=== PATIENT | male | born 1965 | race Caucasian/White ===

== ENCOUNTER 2022-09-01 08:00 | Outpatient (CLI) | payer OTHER, SELFPAY ==
--- NOTE | 2022-09-01 08:00 | RT.EKG_ITS ---
APPROVED REPORT Exam: Resting ECG Reason for Exam: New patient, Atrial fibrillation Patient Location: O HR:58 bpm ECG Measurements Heart Rate 58 AXIS IN 167 P 73 QRSd 97 QRS -34 QT 438 T 29 QTc 431 Conclusion Sinus rhythm...normal P axis, V-rate 50- 99 Left axis Late transition
== END 2022-09-01 08:01 | disposition home or self-care (01) ==
LOC: DI.CARD 08:01
PROVIDERS: PCP Nurse Practitioner Family; Visit Provider Internal Medicine Cardiovascular Disease
DX: I48.91 Unspecified atrial fibrillation (principal)
CPT/HCPCS: 93010

== ENCOUNTER 2023-02-22 00:40 | Outpatient (CLI) | payer OTHER, SELFPAY ==
--- NOTE | 2023-02-22 15:00 | DI.US_ITS ---
APPROVED REPORT EXAM: Comprehensive 2D, Doppler, and color-flow Echocardiogram Patient Location: Out-Patient Route Sales Person: Adina Acevedo RDCS (AE) Indications: s/p Ascending aortic aneurysm repair, Atrial Fibrillation Other Information Study Quality: Adequate Conclusion Normal left ventricular wall thickness and chamber size. Ejection fraction is 60%. Wall motion is n ormal Normal right ventricular size and systolic function Both atria are normal in size The aortic valve is mildly sclerotic and trileaflet with mild regurgitation Normal tricuspid valve with mild regurgitation Normal mitral valve with trace regurgitation Ascending aorta measures 2.93 cm Estimated right ventricular systolic pressure is 24 mmHg Wall motion Left Ventricle The left ventricle is normal size. The left ventricular systolic function is normal. The left ventric ular ejection fraction is within the normal range. There is normal left ventricular wall thickness. T here is normal LV segmental wall motion. There is no ventricular septal defect visualized. LVEF is 60 %. Right Ventricle The right ventricle is normal size. The right ventricular systolic function is normal. Atria The left atrium size is normal. The right atrium size is normal. The interatrial septum is intact wit h no evidence for an atrial septal defect. The atrial septum is aneurysmal. Aortic Valve The Aortic valve is mildly sclerotic. Aortic valve is trileaflet. There is no aortic valvular stenosi s. Mild aortic regurgitation. Mitral Valve The mitral valve is normal in structure. No evidence of mitral valve stenosis. Trace mitral regurgita tion. Tricuspid Valve The tricuspid valve is normal in structure. There is no tricuspid valve stenosis. Mild tricuspid regu rgitation. Pulmonic Valve The pulmonary valve is normal in structure. There is no pulmonic valvular stenosis. There is no pulmo tomas valvular regurgitation. Great Vessels The aortic root is normal in size. The ascending aorta is normal in size. History of repaired ascendi ng aorta. Aortic arch is normal in caliber. IVC is normal in size and collapses >50% with inspiration . Pericardium There is no pericardial effusion. 2D Dimensions IVSD d PLAX 1.08 cm M: 0.6-1.2 LV Vol A2C d MOD 156.7 mL LVPW d PLAX 1.07 cm M: 0.6 - 1.2 LV Vol A4C d MOD 123.7 mL LVID d PLAX 5.55 cm M: 4.2 - 5.8 LA vol/ BSA A2C s A-L 30.5 mL/m2 LVDs 3.80 cm M: 2.5 - 4.0 LA vol/ BSA A4C s A-L 22.9 mL/m2 Ao Root d 3.20 cm M: 3.1 - 3.7 LA Vol/ BSA Biplane s A-L 27.4 mL/m2 RA Area A4C 18.21 cm2 LA Area A4C s MOD 18.45 cm2 RA Vol/ BSA A4C s A-L 24.5 mL/m2 LA Area A2C s MOD 20.52 cm2 Ao Asc Diam d 2.93 cm M: 2.6 - 3.4 LV EF A4C MOD 60.8 % LV EF Teichholz 57.9 % LV EF A2C MOD 60.4 % LVEF (Mak's) 60.37 % M: 52 - 72 LV EF Biplane MOD 60.4 % LV Volume 105.34 mL M: 62 - 150 SV 86.27 mL LV Volume Index 49.92 mL/m2 M: 34 - 74 SV Index 40.91 mL/m2 LV Vol Biplane MOD 142.9 mL FS 30.85 % LV Diastology MV E' medial 0.076 (>0.07 m/s) E/A Ratio 1.3 LV E/e MED 7.55 (<14) MV E Vmax 0.58 (0.4-1.3 m/s) MV E' lateral 0.111 (>0.1 m/s) MV A Vmax 0.45 (0.4-1.3 m/s) LV E/e LAT 5.15 (<14) MV E/A Ratio 1.17 MV E/E' medial 7.59 MV E/E' lateral 5.19 Aortic Valve LVOT Area 3.69 cm2 AoV Area Vmax 2.46 cm2 LVOT Vmax 1.19 m/s AoV Area/ BSA (Vmax) 1.17 cm2/m2 LVOT Mean Ministerio. 0.81 m/s MARLENA Mean Ministerio. 2.46 cm2 LVOT Peak Grad 5.6 mmHg MARLENA Mean Ministerio. Index 1.17 cm2/m2 LVOT Mean Grad 3.0 mmHg LVOT VTI 0.239 m LVOT Diam s 2.15 cm AoV Vmax 1.78 m/s Velocity Ratio 0.67 AoV Mean Ministerio. 1.21 m/s AoV Peak Grad 12.7 mmHg LVOT SV 88.35 mL AoV Mean Grad 6.5 mmHg AoV VTI 0.342 m AoV Area VTI 2.58 cm2 AoV Area/ BSA (VTI) 1.22 cm/m2 Mitral Valve MV DT 227 (160-240 msec) MV PHT 66 msec MV Area PHT 3.35 cm2 Pulmonary Valve PV Vmax 0.97 (0.5-1.5 m/s) RVOT Peak Gr. 1.21 mmHg PV Peak Grad 3.8 mmHg RVOT Mean Gr. 0.55 mmHg PV Mean Grad 1.8 mmHg RVOT VTI 0.115 m PV VTI 0.167 m RVOT Vmax 0.55 m/s Tricuspid Valve TR Peak Grad 21.1 mmHg TR Vmax 2.30 m/s RA Pressure 3.00 mmHg RVSP (TR) 24.1 mmHg
== END 2023-02-22 01:00 ==
LOC: DI 00:40
PROVIDERS: PCP Nurse Practitioner Family; Visit Provider Internal Medicine Cardiovascular Disease
DX: I48.91 Unspecified atrial fibrillation (principal); Z86.79 Personal history of other diseases of the circulatory system; Z98.890 Other specified postprocedural states
CPT/HCPCS: 93306

== ENCOUNTER 2023-08-27 02:05 | Outpatient (CLI) | payer OTHER, SELFPAY ==
[2023-08-27 11:56] LABS: Abs Immature Grans 0.02 10^3/uL (0.0-0.06); Absolute Basophil Count 0.03 10^3/uL (0.0-0.2); Absolute Eosinophil Count 0.34 10^3/uL (0.0-0.7); Absolute Lymphocyte Count 1.36 10^3/uL (1.2-3.4); Absolute Neutrophil Count 3.28 10^3/uL (1.2-6.7); Basophils % 0.5; Eosinophils % 5.9; HCT 46.7 % (40.0-50.0); HGB 15.7 g/dL (13.5-17.5); Immature Grans % 0.3; Lymphocytes % 23.7; MCH 30.4 pg (27.0-33.0); MCHC 33.6 % (32.0-36.0); MCV 91 fL (80-95); Monocytes % 12.2; Neutrophils % 57.4; Platelet Count 194 10^3/uL (130-400); RBC 5.16 10^6/uL (4.36-5.78); RDW 12.4 % (11.8-14.1); RDW-SD 40.7 fL; WBC 5.73 10^3/uL (4.4-10.8)
[2023-08-27 12:36] LABS: ALT 37 U/L (16-63); AST 27 U/L (15-37); Albumin 4.1 g/dL (3.4-5.0); Alkaline Phosphatase 97 U/L (46-116); Anion Gap 8.5 mmol/L (3-11); BUN 23 mg/dL (7-18); Bilirubin, Total 0.5 mg/dL (0.2-1.0); CO2 27.5 mmol/L (21.0-32.0); CREATININE 1.4 mg/dL (0.70-1.30); Calcium 9.7 mg/dL (8.5-10.1); Calculated LDL 110 mg/dL (<100); Chloride 104 mmol/L (98-107); Cholesterol 186 mg/dL (<200); Glucose 93 mg/dL (74-106); HDL Cholesterol 49 mg/dL (40-60); Potassium 4.3 mmol/L (3.5-5.1); Sodium 140 mmol/L (136-145); Total Protein 8.3 g/dL (6.4-8.2); Triglyceride 139 mg/dL (<150)
[2023-08-30 11:21] LABS: HIV-1/2 Ag & Ab Screen Negative (Negative)
[2023-08-30 13:38] LABS: Hepatitis C Ab w Rflx HCV PCR Negative (Negative)
== END 2023-08-27 02:06 | disposition home or self-care (01) ==
PROVIDERS: PCP Nurse Practitioner Family; Visit Provider Nurse Practitioner Family
DX: I10 Essential (primary) hypertension (principal); Z13.1 Encounter for screening for diabetes mellitus; Z11.4 Encounter for screening for human immunodeficiency virus [HIV]; E03.9 Hypothyroidism, unspecified; Z11.59 Encounter for screening for other viral diseases; Z51.81 Encounter for therapeutic drug level monitoring; E78.5 Hyperlipidemia, unspecified
CPT/HCPCS: 36415; 80053; 80061; 86803; 87389; 84443; 85025

== ENCOUNTER 2024-08-16 02:12 | Outpatient (CLI) | payer OTHER, SELFPAY ==
--- NOTE | 2024-08-16 07:45 | DI.US_ITS ---
Exam(s) US CAROTID EXAM: US CAROTID CLINICAL HISTORY: surveillance, carotid stenosis, I65.23. TECHNIQUE: Ultrasound carotids performed using grayscale, color-flow, and spectral Doppler imaging. COMPARISON: US US CAROTID from 08/17/2023 FINDINGS: RIGHT CAROTID ARTERY: Plaque: Moderate calcific plaque and intimal thickening involving the common carotid artery, proximal ICA artery and carotid bulb. Velocity elevation: None. LEFT CAROTID ARTERY: Plaque: Moderate calcific plaque and intimal thickening involving the common carotid artery, proximal ICA artery and carotid bulb. Velocity elevation: None. VERTEBRAL ARTERIES: Antegrade flow. Measurements: R Bulb: 58.2cm/s PS / 16.7cm/s ED R CCA: 62.1cm/s PS / 15.4cm/s ED R ECA: 127.6cm/s PS / 19.9cm/s ED R ICA Prox: 75.3cm/s PS / 29.4cm/s ED R ICA Mid: 68.5cm/s PS / 24.9cm/s ED R ICA Distal: 32.6cm/s PS /13.1cm/s ED R Vert: 45cm/s PS / 14.2cm/s ED R SVR: 1.2 R DVR: 1.9 L Bulb: 74.7cm/s PS / 21.7cm/s ED L CCA: 151.7cm/s PS / 28.85cm/s ED L ECA: 70.2cm/s PS / 16.1cm/s ED L ICA Prox: 46.9cm/s PS / 17.8cm/s ED L ICA Mid: 49.7cm/s PS / 20.6cm/s ED L ICA Distal: 62.6cm/s PS / 22.4cm/s ED L Vert: 46.5cm/s PS / 16.7cm/s ED L SVR: 0.5 L DVR: 0.9 IMPRESSION: 1. No evidence for hemodynamically significant carotid stenosis. 2. There are elevated velocities seen in the mid left common carotid artery suggesting stenosis. Vis ually it appears to be less than 50 percent. Criteria for Carotid Stenosis: Normal: ICA PSV <125 cm/s no plaque or intimal thickening is visible. <50% stenosis: ICA PSV <125 cm/s and plaque or intimal thickening is visible. 50-69% stenosis: ICA PSV is 125-250 cm/s and plaque is visible. >70% stenosis to near occlusion: ICA PSV >250 cm/s with visible plaque and luminal narrowing. DATA REPOSITORY:
== END 2024-08-16 02:32 ==
LOC: DI 02:12
PROVIDERS: PCP Nurse Practitioner Family; Visit Provider Nurse Practitioner Family
DX: I65.23 Occlusion and stenosis of bilateral carotid arteries (principal)
CPT/HCPCS: 93880

== ENCOUNTER 2024-08-16 02:13 | Outpatient (CLI) | payer OTHER, SELFPAY ==
--- NOTE | 2024-08-16 07:45 | DI.US_ITS ---
APPROVED REPORT EXAM: Comprehensive 2D, Doppler, and color-flow Echocardiogram Patient Location: Out-Patient Rrt: Adina Acevedo RDCS (AE) Indications: Check aortic root, Valve, s/p Ascending aortic aneurysm repair Other Information Study Quality: Adequate Conclusion Normal left ventricular wall thickness and chamber size. Ejection fraction is 57%. Wall motion is n ormal Normal right ventricular size and function Both atria are normal in size. The atrial septum is thin and hypermobile Trileaflet aortic valve with mild regurgitation Mild mitral annular calcification. Trace mitral regurgitation Estimated right ventricular systolic pressure is 20 mmHg Aortic root and ascending aorta measure 2.96 cm Wall motion Left Ventricle The left ventricle is normal size. The left ventricular systolic function is normal. The left ventric ular ejection fraction is within the normal range. There is normal left ventricular wall thickness. T here is normal LV segmental wall motion. There is no ventricular septal defect visualized. LVEF is 57 %. Right Ventricle The right ventricle is normal size. The right ventricular systolic function is normal. Atria The left atrium size is normal. The right atrium size is normal. Atrial septal aneurysm is present. Aortic Valve The aortic valve is normal in structure. Aortic valve is trileaflet. There is no aortic valvular yeny nosis. Mild aortic regurgitation. Mitral Valve Mild mitral annular calcification. No evidence of mitral valve stenosis. Trace mitral regurgitation. Tricuspid Valve The tricuspid valve is normal in structure. There is no tricuspid valve stenosis. Mild tricuspid regu rgitation. The RVSP is 20.3mmHg. Pulmonic Valve The pulmonary valve is normal in structure. There is no pulmonic valvular stenosis. There is no pulmo tomas valvular regurgitation. Great Vessels The aortic root is normal in size. The ascending aorta is normal in size. Aortic arch is not well vis ualized. IVC is normal in size and collapses >50% with inspiration. Pericardium There is no pericardial effusion. 2D Dimensions IVSD d PLAX 1.12 cm M: 0.6-1.2 Ao Root d 2.96 cm M: 3.1 - 3.7 LVPW d PLAX 1.10 cm M: 0.6 - 1.2 Ao Asc Diam d 2.95 cm M: 2.6 - 3.4 LVID d PLAX 5.57 cm M: 4.2 - 5.8 LVDs 3.83 cm M: 2.5 - 4.0 LV EF Teichholz 58.2 % FS 31.09 % LV EDV (Teich) 151.5 mL LV ESV (Teich) 63.3 mL M-Mode TAPSE 1.34 cm (M/F) >1.7 Auto EF LV EDV A4C 115.3 mL LV EDV A2C 155.0 mL LV EDV BP 136.9 mL LV ESV A4C 49.5 mL LV ESV A2C 66.6 mL LV ESV BP 58.0 mL LVEF(%) A4C 57.0 % LVEF(%) A2C 57.1 % LVEF(%) BP 57.7 % LV SV A4C 65.7 ml LV SV A2C 88.5 ml LV SV BP 78.9 ml LV CO A4C 4.1 L/min LV CO A2C 5.2 L/min LV CO BP 4.6 L/min HR A4C 62.72 BPM HR A2C 58.35 BPM LV EDV Index (BP) LA Volume LA Length A4C 5.5 cm LA Length A2C 5.1 cm LA Area A4C s 17.83 cm2 LA Area A2C s 20.88 cm2 LA Vol A4C A-L 49.16 mL LA Vol A2C A-L 72.82 mL LA Vol Biplane A-L 62.2 mL LA Vol/BSA A4C A-L LA Vol/BSA A2C A-L LA Vol/BSA BP A-L 30.3 mL/m2 LA Vol A4C MOD 42.6 mL LA Vol A2C MOD 68.5 mL LA Vol BP MOD 56.0 mL RA Volume RA Area A4C 17.4 cm2 RA ESV A4C (A-L) 54.4mL RA Vol/BSA A4C A-L RA Length A4C 4.8 cm RA ESV A4C (MOD) 51.4mL LV Diastology MV E' medial 0.092 (>0.07 m/s) MV E Vmax 0.47 (0.4-1.3 m/s) MV E/E' MED 5.16 (<14) MV A Vmax 0.50 (0.4-1.3 m/s) MV E' lateral 0.108 (>0.1 m/s) E/A Ratio 0.9 MV E/E' LAT 4.39 (<14) MV E' Average 0.100 m/s MV E/E'(average) 4.75 Aortic Valve AoV Vmax 1.50 m/s LVOT Vmax 1.18 m/s AoV Peak Grad 43.5 mmHg LVOT Peak Grad 5.6 mmHg AoV Area (Vmax) 2.78 cm2 LVOT VTI 0.235 m AoV VTI 0.298 m LVOT Mean Grad 3.2 mmHg AoV Mean Ministerio. 1.02 m/s LVOT SV 83.04 mL AoV Mean Grad 4.8 mmHg LVOT Diam s 2.10 cm AoV Area (VTI) 2.79 cm2 AV Regurg Peak Gr. 9.04 mmHg Velocity Ratio 0.79 AR Decel [place] 1.5m/sec2 AR DT 3035 msec AR PHT 880 msec AR Vmax 4.42 m/s Mitral Valve MV DT 448 (160-240 msec) MV Vmax TIPS 0.58 m/s MV Mean Grad 0.7 (<2mmHg) MV VTI 0.205 m Pulmonary Valve PV Vmax 0.95 (0.5-1.5 m/s) RVOT Vmax 0.56 m/s PV Peak Grad 3.6 mmHg RVOT Peak Gr. 1.2 mmHg PV Mean Ministerio 0.57 m/s RVOT VTI 0.108 m PV Mean Grad 1.6 mmHg RVOT Mean Gr. 0.6 mmHg Tricuspid Valve RA Pressure 3.00 mmHg TR Vmax 2.08 m/s TR Peak Grad 17.3 mmHg RVSP (TR) 20.3 mmHg
== END 2024-08-16 02:33 ==
LOC: DI 02:13
PROVIDERS: PCP Nurse Practitioner Family; Visit Provider Internal Medicine Cardiovascular Disease
DX: Z98.890 Other specified postprocedural states (principal); Z86.79 Personal history of other diseases of the circulatory system
CPT/HCPCS: 93306

== ENCOUNTER 2024-08-25 01:27 | Outpatient (CLI) | payer OTHER, SELFPAY ==
[2024-08-25 09:36] LABS: Creatine Kinase 229 U/L (39-308); FREE T4 0.93 ng/dL (0.76-1.46)
[2024-08-25 10:12] LABS: ALT 30 U/L (16-63); AST 23 U/L (15-37); Alkaline Phosphatase 92 U/L (46-116); BUN 21 mg/dL (7-18); Bilirubin, Total 0.55 mg/dL (0.2-1.0); CREATININE 1.4 mg/dL (0.70-1.30); Calcium 9.7 mg/dL (8.5-10.1); Calculated LDL 114 mg/dL (<100); Chloride 106 mmol/L (98-107); Cholesterol 204 mg/dL (<200); Estimated GFR 57.54 (mL/min/1.73m2); Glucose 99 mg/dL (74-106); HDL Cholesterol 56 mg/dL (40-60); Potassium 4.6 mmol/L (3.5-5.1); Sodium 143 mmol/L (136-145); TSH 9.83 uIU/mL (0.36-3.74); Total Protein 8.1 g/dL (6.4-8.2); Triglyceride 172 mg/dL (<150)
== END 2024-08-25 01:28 | disposition home or self-care (01) ==
LOC: LBO 01:28
PROVIDERS: PCP Nurse Practitioner Family; Visit Provider Nurse Practitioner Family
DX: I25.10 Atherosclerotic heart disease of native coronary artery without angina pectoris (principal); E03.9 Hypothyroidism, unspecified; I10 Essential (primary) hypertension; Z12.11 Encounter for screening for malignant neoplasm of colon
CPT/HCPCS: 36415; 80053; 80061; 82550; 84439; 84443

== ENCOUNTER 2024-08-28 08:30 | Outpatient (CLI) | payer OTHER, SELFPAY ==
--- NOTE | 2024-08-28 08:30 | RT.EKG_ITS ---
APPROVED REPORT Exam: Resting ECG Reason for Exam: ASCVD Patient Location: O HR:70 bpm ECG Measurements Heart Rate 70 AXIS MO 170 P 34 QRSd 100 QRS -23 QT 395 T 50 QTc 427 Conclusion Sinus rhythm...normal P axis, V-rate 50- 99 Borderline left axis deviation...QRS axis (-15,-29)
== END 2024-08-28 08:31 | disposition home or self-care (01) ==
LOC: DI.CARD 08:31
PROVIDERS: PCP Nurse Practitioner Family; Visit Provider Internal Medicine Cardiovascular Disease
DX: I25.10 Atherosclerotic heart disease of native coronary artery without angina pectoris
CPT/HCPCS: 93010

== ENCOUNTER 2024-09-18 06:21 | Day surgery (SDC) | payer OTHER, SELFPAY ==
[2024-09-18 06:34] VITALS: BP 147/72; PULSE 60; RESP 18; TEMP 36.4; O2SAT 97
[2024-09-18] MEDS: Normal Saline Flush 10 ML SYR IV (06:50)
--- NOTE | 2024-09-18 07:13 | ANES.PREOP_ITS ---
General Info Date of Service Date Performed: 09/18/24 Height: 5 ft 8.5 in Weight: 88.6 kg Body Mass Index (BMI): 29.2 Surgical Procedure: Operation Date: 09/18/24 07:35 Proposed Procedure Side Surgeon mari Loya MD Meds Allergies and Home Medications Allergies Allergy/AdvReac Type Severity Reaction Status Date / Time No Known Allergies Allergy Verified 09/18/24 06:41 Home Medication ?Medication ?Instructions ?Recorded aspirin 81 mg tablet,delayed 81 mg PO DAILY 06/11/22 release metoprolol succinate 50 mg See Rx Instructions .Route 05/29/24 tablet,extended release 24 hr .COMPLEX #90 tabs lisinopril 20 mg tablet See Rx Instructions .Route 08/03/24 .COMPLEX #90 tabs amoxicillin 500 mg-potassium 1 tab PO TID #90 tabs 08/09/24 clavulanate 125 mg tablet (Augmentin) atorvastatin 40 mg tablet See Rx Instructions .Route 08/25/24 .COMPLEX #90 tabs bisacodyl 5 mg tablet,delayed 5 mg PO ONCE #4 tabs 08/25/24 release (Dulcolax (bisacodyl)) levothyroxine 175 mcg tablet 175 mcg PO DAILY #90 tab-caps 08/25/24 polyethylene glycol 3350 17 17 g PO ONCE #238 grams 08/25/24 gram/dose oral powder Current Visit Medications: Current Medications Generic Name Dose Route Start Last Admin Trade Name Freq PRN Reason Stop Dose Admin Ringer's Solution 1,000 mls @ 80 mls/hr 09/18/24 06:00 IV 09/18/24 23:59 INFUSION BASHIR IV Miscellaneous Supplies 1 each 09/18/24 06:00 Iv Access IV 09/18/24 23:59 DIRECTED BASHIR Sodium Chloride 0 ml 09/18/24 06:00 09/18/24 06:50 Normal Saline Flush 10 Ml Syr IV 09/18/24 23:59 10 ml PRN PRN Administration Sodium Chloride 0 ml 09/18/24 06:00 Normal Saline 10 Ml Vial IJ 09/18/24 23:59 DIRECTED PRN Sterile Water 0 ml 09/18/24 06:00 Water,Injection,Sterile 10 Ml Vial IJ 09/18/24 23:59 DIRECTED PRN PFSH Active Problems Active Problems: Problem Status Onset Code S/P ascending aortic aneurysm repair Acute Z98.890, Z86.79 ASCVD (arteriosclerotic cardiovascular disease) Acute I25.10 Hypertension Chronic I10 Hypothyroid Chronic E03.9 Carotid stenosis Acute ~10/16/13 I65.29 Atrial fibrillation Chronic I48.91 Medical History Medical History 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) History of throat cancer (2013) radiation and chemotherapy, no surgery History of abdominal hernia (~05/2014) Surgical History Surgical History Status post hernia repair (~2013) Abdominal wall S/P Maze operation for atrial fibrillation (~2021) H/O nasal septoplasty (~2013) S/P AAA repair (~12/23/21) 12/2021 Tobacco Smoking/Tobacco Use Status: Former Tobacco Use Passive smoking exposure: No Alcohol Alcohol Intake: current Alcohol intake frequency: a few times a week Substance Use Substance use: Never Substance use type: does not use Vital Signs and Lab Results Vital Signs Most Recent Vital Signs in EMR: Most Recent Vital Signs Temp Pulse Resp BP Pulse Ox 36.4 C L 60 18 147/72 H 97 09/18/24 06:34 09/18/24 06:34 09/18/24 06:34 09/18/24 06:34 09/18/24 06:34 Lab Results Blood Type / Crossmatch: No Data to Display Complete Blood Count: No Data to Display Complete Metabolic Panel: Sodium 143 mmol/L (136-145) 08/25/24 08:47 Potassium 4.6 mmol/L (3.5-5.1) 08/25/24 08:47 Chloride 106 mmol/L (98-107) 08/25/24 08:47 Carbon Dioxide 30.0 mmol/L (21.0-32.0) 08/25/24 08:47 BUN 21 mg/dL (7-18) H 08/25/24 08:47 Creatinine 1.4 mg/dL (0.70-1.30) H 08/25/24 08:47 Est GFR (CKD-EPI 2020) 57.54 (mL/min/1.73m2) 08/25/24 08:47 Calcium 9.7 mg/dL (8.5-10.1) 08/25/24 08:47 Albumin 4.0 g/dL (3.4-5.0) 08/25/24 08:47 Glucose 99 mg/dL (74-106) 08/25/24 08:47 Liver Function Panel: Alanine Aminotransferase (ALT/SGPT) 30 U/L (16-63) 08/25/24 08: 47 Aspartate Amino Transf (AST/SGOT) 23 U/L (15-37) 08/25/24 08:47 Coagulation Panel: No Data to Display Cardiac Panel: Creatine Kinase 229 U/L (39-308) 08/25/24 Arterial Blood Gas: No Data to Display Venous Blood Gas: No Data to Display Pancreas Panel: No Data to Display Thyroid Panel: Thyroid Stimulating Hormone (TSH) 9.83 uIU/mL (0.36-3.74) H 08/25/24 08:47 Infectious Disease: No Data to Display Blood Cultures: No Data to Display Toxicology Panel: No Data to Display Imaging and Studies Imaging and Studies Study information below may be from another EMR and interpreted by another provider. Please see original notes in EMR for more complete details. EKG Summary: 08/28/24: Exam: Resting ECG Reason for Exam: ASCVD Patient Location: O HR:70 bpm ECG Measurements Heart Rate 70 AXIS MT 170 P 34 QRSd 100 QRS -23 QT 395 T50 QTc 427 Conclusion Sinus rhythm...normal P axis, V-rate 50- 99 Borderline left axis deviation...QRS axis (-15,-29) Echocardiogram Summary: 08/16/24: Conclusion Normal left ventricular wall thickness and chamber size. Ejection fraction is 57%. Wall motion is normal Normal right ventricular size and function Both atria are normal in size. The atrial septum is thin and hypermobile Trileaflet aortic valve with mild regurgitation Mild mitral annular calcification. Trace mitral regurgitation Estimated right ventricular systolic pressure is 20 mmHg Aortic root and ascending aorta measure 2.96 cm Carotid Artery Summary:: 08/16/24: IMPRESSION: 1. No evidence for hemodynamically significant carotid stenosis. 2. There are elevated velocities seen in the mid left common carotid artery suggesting stenosis. Visually it appears to be less than 50 percent. Anesthesia Assessment and Plan Anesthesia History Personal History: No History of Anesthesia Complications Family History: No Family History of Anesthesia Complications Exercise Tolerance Exercise Tolerance: Metabolic Equivalents>4 Pertinent Negatives Pertinent Negatives: No Symptoms of GERD Cardiac & Pulmonary Exam Cardiac Exam: Normal S1/S2 Heart Sounds Pulmonary Exam: Clear Bilateral Breath Sounds Implantable Cardiac Device Does patient have a Pacemaker or an ICD?: No Airway Exam Known Difficult Airway: No Mallampati Class: 3 Mouth Opening: Normal (> 3cm) Thyromental Distance: Greater than 3 cm Neck Range of Motion: Full ROM Neck Circumference: Normal Teeth Condition: Normal Dentition ASA Classification ASA Score: ASA 3 Emergency Case?: No NPO Status NPO Status: NPO Clears >2 hours, Solids >8 hours Anesthesia Plan Resuscitation Status: Full Code Anesthesia Technique: General Anesthesia Airway Planned: Natural Airway Monitors Used: Standard Monitors
[2024-09-18 07:29] VITALS: BMI 29.2
--- NOTE | 2024-09-18 07:49 | BOWEL_PTH ---
PATIENT: Titi Anders LOC: [facility] U#:[id number] AGE/SX: 59/M ROOM: RE09/18/[address]: Denny Loya : 1965 BED: DIS: 09/18/2024 SPEC #: [id number] RECD: 09/18/24 12:43 STATUS: SIVAKUMAR RE #: [id number] CLARI: 09/18/24 07:[address]: Denny Loya DEPT: Surgical Specimen RECD BY: Brenna Olmedo ENTERED: 09/18/24 12:44 SP TYPE: Bowel OTHR DR: Lesley León APRN Tissues: 1 - BIOPSY BOWEL 2 - BIOPSY BOWEL 3 - BIOPSY BOWEL Procedures: GROSS AND MICRO LEVEL 4 Comments: [id number]
[2024-09-18 08:05] VITALS: BP 88/63; PULSE 61; RESP 18; TEMP 36.5; O2SAT 96
--- NOTE | 2024-09-18 08:05 | COLE_ITS ---
Date of service: 09/18/24 Time of Service: 08:05 Colonoscopy Report Procedure Description: PROCEDURES PERFORMED: 1. Colonoscopy with cold forceps polypectomy x3 PREOPERATIVE DIAGNOSIS: Surveillance colonoscopy POSTOPERATIVE DIAGNOSIS: Colon polyps, grade 1 internal hemorrhoids SURGEON: Rivka Loya MD INDICATION for procedure: The patient is a 59-year-old man with no symptoms due for screening/surveillance colonoscopy. His prior colonoscopies were normal. No increased risk factors. FINDINGS: In the transverse colon, a small 2 to 3 mm polyp was removed with cold forceps technique. In the descending colon another 2 to 3 mm polyp was removed with cold forceps technique. In the proximal rectum a 3-5 mm adenomatous?- appearing polyp was removed with cold forceps technique. Throughout the transverse, descending, sigmoid colons and rectum there were numerous, small (sub-mm) polyps that all appear to be hyperplastic. Grade 1 internal hemorrhoids present. No obvious diverticular disease. SURVEILLANCE interval/FOLLOW-UP: Probably 10 years as long as the proximal polyps are hyperplastic or non-? adenomatous. If the small polyps are adenomatous(not suspected), consideration should be given to a repeat colonoscopy in 3 years because of the other very small polyps that were seen. SPECIMENS: yes EBL: Minimal COMPLICATIONS: None QUALITY of prep: Excellent Procedure in detail: The patient gave written consent and was in agreement with the indications, the potential risks as well as the benefits of the procedure. They were taken to the endoscopy suite and laid in the left lateral decubitus position. A timeout was performed and anesthesia was administered which was tolerated well. I started the procedure. Digital rectal and visual examination was performed and grossly within normal limits. A well-lubricated flexible colonoscope was then introduced and passed without any notable difficulty all the way to the cecum identified by the ileocecal valve and the appendiceal orifice. The scope was then slowly withdrawn with the above-noted findings. The patient tolerated the procedure well and was taken to the PACU in hemodynamically stable condition.
--- NOTE | 2024-09-18 08:11 | W.PM.DSUDISC ---
Date of service: 09/18/24 Time of Service: 08:11 Discharge Plan Disposition Patient Disposition: Home Condition: Good Discharge Details Attending Provider: Denny Loya Primary Care Provider: Lesley León Home Meds and New Rx's Prescriptions: No Action aspirin 81 mg tablet,delayed release (DR/EC) 81 mg PO DAILY bisacodyl [Dulcolax (bisacodyl)] 5 mg tablet,delayed release (DR/EC) 5 mg PO ONCE Qty: 4 0RF Rx Instructions: Take per colonoscopy instructions provided by ordering providers office polyethylene glycol 3350 17 gram/dose powder 17 g PO ONCE Qty: 238 0RF Rx Instructions: Take per colonoscopy instructions provided by ordering providers office metoprolol succinate 50 mg tablet extended release 24 hr See Rx Instructions .ROUTE .COMPLEX Qty: 90 3RF Dose Instruction: TAKE 1 TABLET DAILY Rx Instructions: TAKE 1 TABLET DAILY lisinopril 20 mg tablet See Rx Instructions .ROUTE .COMPLEX Qty: 90 1RF Dose Instruction: TAKE 1 TABLET DAILY Rx Instructions: TAKE 1 TABLET DAILY amoxicillin-pot clavulanate [Augmentin] 500-125 mg tablet 1 tab PO TID Qty: 90 0RF Patient Comments: On hand for osteoradiocecrosis from radiation from cancer atorvastatin 40 mg tablet See Rx Instructions .ROUTE .COMPLEX Qty: 90 3RF Dose Instruction: TAKE 1 TABLET DAILY Rx Instructions: TAKE 1 TABLET DAILY levothyroxine 175 mcg tablet 175 mcg PO DAILY Qty: 90 3RF Rx Instructions: Administer in the morning on an empty stomach, at least 30-60 minutes before food Discharge Instructions Additional Instructions: FINDINGS: Shadi, everything looks pretty good today. No inflammation. No disease. Some very small polyps were found and removed. This is why we do the colonoscopies. They are nothing to worry about. Very mild hemorrhoid disease was seen today. This is both very common, benign and nothing needs to be done about it. Repeat another colonoscopy in 10 years. Stand Alone Forms: Colonoscopy Post Instructions Activity:: Activity as Tolerated Diet:: As Tolerated
--- NOTE | 2024-09-18 08:18 | W.ANESPOSTOP ---
Postoperative Evaluation Date, Time and Location Date Performed: 09/18/24 Time Performed: 08:08 Patient Location: Day Surgery Unit Vital Signs Most Recent Imported Vital Signs: Most Recent Vital Signs Temp Pulse Resp BP Pulse Ox 36.5 C 61 18 88/63 L 96 09/18/24 08:05 09/18/24 08:05 09/18/24 08:05 09/18/24 08:05 09/18/24 08:05 Pain Score Most Recent Pain Score: Most Recent Pain Score Pain Level 0 09/18/24 08:05 Assessment Mental Status: Awake (Alert & Oriented to Patient Baseline) Airway and Respiratory Function: Patent airway with normal (patient baseline) respiratory exam Cardiovascular Function: Hemodynamically Stable Hydration Status: Adequately Hydrated Nausea & Vomiting: No Nausea or Vomiting Pain: Pt. Denies Any Pain Peripheral Nerve Block: Patient did not receive a nerve block
[2024-09-18 08:24] VITALS: BP 121/71; PULSE 53; RESP 18; TEMP 36.5; O2SAT 99
== END 2024-09-18 08:45 | disposition home or self-care (01) ==
PROVIDERS: PCP Nurse Practitioner Family; Visit Provider Student in an Organized Health Care Education/Training Program
PROC: 0DJD8ZZ Inspection of Lower Intestinal Tract, Via Natural or Artificial Opening Endoscopic (ICD-10-PCS; CPT 45378; principal; 2024-09-18 07:30)
DX: Z12.11 Encounter for screening for malignant neoplasm of colon (principal); I10 Essential (primary) hypertension; K63.5 Polyp of colon; K64.0 First degree hemorrhoids; D12.8 Benign neoplasm of rectum; K63.89 Other specified diseases of intestine
CPT/HCPCS: 45380; 00123; 88305; J2003; J2704

== ENCOUNTER 2025-01-12 08:14 | Outpatient (CLI) | payer OTHER, SELFPAY ==
[2025-01-12 08:32] LABS: ALT 39 U/L (16-63); AST 27 U/L (15-37); Alkaline Phosphatase 117 U/L (46-116); Anion Gap 5.9 mmol/L (3-11); BUN 18 mg/dL (7-18); Bilirubin, Total 0.6 mg/dL (0.2-1.0); CO2 32.1 mmol/L (21.0-32.0); CREATININE 1.2 mg/dL (0.70-1.30); Calcium 9.7 mg/dL (8.5-10.1); Calculated LDL 98 mg/dL (<100); Chloride 104 mmol/L (98-107); Cholesterol 180 mg/dL (<200); Estimated GFR 69.23 (mL/min/1.73m2); Glucose 98 mg/dL (74-106); HDL Cholesterol 50 mg/dL (>or=40); Potassium 4.7 mmol/L (3.5-5.1); Sodium 142 mmol/L (136-145); TSH (W/Ref FT4) 2.86 uIU/mL (0.36-3.74); Total Protein 7.7 g/dL (6.4-8.2); Triglyceride 160 mg/dL (<150)
[2025-01-12 08:43] LABS: Creatine Kinase 120 U/L (39-308)
== END 2025-01-12 08:15 | disposition home or self-care (01) ==
LOC: LBO 08:16
PROVIDERS: PCP Nurse Practitioner Family; Visit Provider Nurse Practitioner Family
DX: I25.10 Atherosclerotic heart disease of native coronary artery without angina pectoris (principal); E03.9 Hypothyroidism, unspecified
CPT/HCPCS: 36415; 80053; 80061; 82550; 84443